=== PATIENT | female | born 1960 | race Caucasian/White ===

== ENCOUNTER 2022-03-18 22:44 | Outpatient (REF) | payer BC, SELFPAY ==
[2022-03-19 12:14] LABS: COVID-19 RT-PCR UVMMC Result Negative (Negative)
== END 2022-03-18 22:45 | disposition home or self-care (01) ==
LOC: LBN 22:44
PROVIDERS: Visit Provider Physician Assistant Medical
DX: Z20.822 Contact with and (suspected) exposure to COVID-19 (principal); R05.8 Other specified cough
CPT/HCPCS: U0003